=== PATIENT | female | born 1960 | race African-American/Black ===

== ENCOUNTER 2017-12-11 22:33 | Emergency (ER) | payer BC, OTHER ==
[~2017-12-11] VITALS: Ht 167.6 cm; Wt 113.0 kg
[~2017-12-11 22:33] MED LIST: ALBU6.7H INH; CLON0.1T14 PO; COR3 PO; FURO-151 PO; IPRA3AMP9 IH; LOSA50TA3 PO; METF500T4 PO; [UNRECOGNIZED DRUG - CODE] MC; [UNRECOGNIZED DRUG - CODE] MC
[2017-12-12] MEDS ORDERED: IBUPROFEN 600MG TABLET PO ONE (02:00)
[2017-12-12] MEDS ORDERED: ACETAMINOPHEN WITH CODEINE 300/30MG TABLET PO ONE (02:15)
[2017-12-12 02:22] VITALS: BP 145/91
== END 2017-12-12 02:46 | disposition home or self-care (01) ==
LOC: ER 22:33
DX: H60.501 Unspecified acute noninfective otitis externa, right ear (principal); E11.9 Type 2 diabetes mellitus without complications; I10 Essential (primary) hypertension; Z90.49 Acquired absence of other specified parts of digestive tract; Z87.891 Personal history of nicotine dependence
CPT/HCPCS: 82962; 99283